=== PATIENT | female | born 1985 | race Caucasian/White ===

== ENCOUNTER 2021-11-14 12:42 | Emergency (ER) | payer OTHER, SELFPAY ==
--- NOTE | ~2021-11-14 | US_ITS ---
EXAMINATION: US OBSTETRICAL ULTRASOUND CLINICAL INFORMATION: Positive COMPARISON: None. TECHNIQUE: Transabdominal endovaginal pelvic ultrasound FINDINGS: There is a single intrauterine gestational sac with visible yolk sac, embryo/fetus, and cardiac activity. There is no significant subchorionic hemorrhage or hematoma. HR: 109 beats per minute. CRL (crown rump length): 0.39 cm (6 weeks 1 day +/- 4 days). RAF (estimated date of delivery): 06/16/2022 +/- 4 days. MATERNAL ADNEXA: The right maternal ovary measures 8 mL in volume and the left maternal ovary measures 6 mL in volume. There is no significant maternal adnexal mass. No maternal pelvic ascites. US/US OB <= 14 weeks fetus IMPRESSION: 1. Single intrauterine gestation with ultrasound gestational age of 6 weeks 1 day +/- 4 days. 2. Estimated date of delivery is 06/16/2022 +/- 4 days. 3. No maternal adnexal mass or pelvic ascites.
[2021-11-14 12:57] VITALS: BP 141/82; PULSE 83; RESP 18; TEMP 36.6; O2SAT 98; BMI 33.6
--- OUTSIDE RECORDS SUMMARY | 2021-11-14 14:19 | XMS_ITS | Continuity of Care Document ---
:1985 Author Organization [facility] Adult [facility] Address [address] [place] [address]- Care Team Providers Name Role Phone Colton Mccarthy MD Primary Care Physician [place] [facility] [place]s): 06/18/20 - 07/18/20 [facility] [address] [place], [place] [address] Allergies, Adverse Reactions, Alerts Substance Reaction Severity Status NKA Active Immunizations Given and Recorded Vaccine Date Status Refusal Reason influenza virus vaccine, inactivated 11/20/19 Given tetanus/diphtheria/pertussis, acel(Tdap)1 02/14/10 Given 1Admin Note: VIS given Medications metFORMIN 500 mg oral tablet 1 tablet = 500 mg, By Mouth, 2 times a day, with meals, # 180 tablet, 1 Refills, Maintenance, 11/20/19 11:00:00 EDT, Tablet, [id number], 170, cm, 11/20/19 10:47:00 EDT, Height, 109, kg, 08/06/18 5:20:00 EDT, Dry Weight Start Date: 11/20/19 Stop Date: 05/18/20 Status: OrderedPrenatal Multivitamins with Folic Acid 1 mg oral tablet 1 tablet, By Mouth, Daily, # 90 tablet, 4 Refills, Maintenance, 11/20/19 11:06:00 EDT, Tablet, [id number], 1 tablet By Mouth Daily, 170, cm, 11/20/19 10:47:00 EDT, Height, 109, kg, 08/06/18 5:20:00 EDT, Dry Weight Start Date: 11/20/19 Status: Ordered Problem List Condition Effective Dates Status Health Status Informant Menstrual irregularity(Confirmed) Active PCOS (polycystic ovarian Active syndrome)(Confirmed) Social History Social History Type Response Tobacco Use: 4 or less cigarettes(le ss than 1/4 pack)/day in last 30 days. Sex
--- OUTSIDE RECORDS SUMMARY | 2021-11-14 14:19 | XMS_ITS | Continuity of Care Document ---
:1985 Author Organization [facility] p Address [address] [place] [address], [address] [place] [address]- Care Team Providers Name Role Phone Trinh Hernandez MD Primary Care Physician [place] [facility] [place] 07[place]21 [facility] [address], [address] [place] [id number] Attending Physician: Kassy Melchor MD Referring Physician: Trinh Hernandez MD Allergies, Adverse Reactions, Alerts No Known Allergies Immunizations Given and Recorded Vaccine Date Status Refusal Reason SARS-CoV-2 (COVID-19) Ad26 vaccine 05/25/20 Given influenza virus vaccine, inactivated 11/20/19 Given tetanus/diphtheria/pertussis, acel(Tdap)1 02/14/10 Given 1Admin Note: VIS given Medications metFORMIN 500 mg oral tablet 1 tablet = 500 mg, By Mouth, 2 times a day, TAKE 1 TABLET BY MOUTH TWICE A DAY NEEDED WITH MEALS,# 60 tablet, 5 Refills, Maintenance, 05/08/21 10:20:00 EDT, Tablet, [id number], Partial fillupon patient request if the prescription is for a... Start Date: 05/08/21 Status: OrderedNicotine 2 mg gum 1 each = 2 mg, Chew, Every hour, PRN as needed for smoking cessation, # 160 each, 1 Refills, Acute 05/08/22 10:21:00 EDT, 05/08/21 10:21:00 EDT, Gum, [id number], Partial fill upon patient request if the prescription is for a schedule II opioid... Start Date: 05/08/21 Stop Date: 05/08/22 Status: Ordered Problem List Condition Effective Dates Status Health Status Informant Menstrual irregularity(Confirmed) Active Obese class I(Confirmed) Active PCOS (polycystic ovarian Active syndrome)(Confirmed) Procedures Procedure Date Related Diagnosis Body Site Status Breast reduction Completed delivery Completed delivery Completed Vital Signs Most recent to oldest [Reference Range]: 1 Height 170 cm (07/10/21 3:35 PM) Weight 99 kg (07/10/21 3:35 PM) Body Mass Index [18.5-24.99] 34.26 *>HHI* (07/10/21 3:35 PM) Blood Pressure [90-138/55-84 mm Hg] 125/80 mm Hg (07/10/21 3:35 PM) Blood pressure sites Arm, right (07/10/21 3:35 PM) Weight Obtained Via Standing scale (07/10/21 3:35 PM) Social History Social History Type Response Tobacco Use: 4 or less cigarettes(le ss than 1/4 pack)/day in last 30 days. Interested in cessatio n: Yes. Sex
--- OUTSIDE RECORDS SUMMARY | 2021-11-14 14:19 | XMS_ITS | Continuity of Care Document ---
:1985 Author Organization [facility] Adult [facility] Address [address] [place] [address]- Care Team Providers Name Role Phone Mary TREVIÑO, Trinh Singh Primary Care Physician Encounter [facility] Date(s): 05/20/21 - 07/03/21 [facility] [address] [place], [place] [address] Attending Physician: Martin Dumont MD Admitting Physician: Martin Dumont MD Allergies, Adverse Reactions, Alerts No Known [...] Start Date: 05/08/21 Stop Date: 05/08/22 Status: Orderednicotine 21 mg/24 hr transdermal film, extended release 1 patch, Topically, Daily, for 30 days, # 30 patch, 1 Refills, Acute 07/07/21 10:21:00 EDT, 05/08/2209:21:00 EDT, Patch, [id number], Partial fill upon patient request if the prescription is for a schedule II opioid drug., 1 patch Topically Da... Start Date: 05/08/21 Stop Date: 07/07/21 Status: Ordered Problem List Condition Effective Dates Status Health Status Informant Menstrual irregularity(Confirmed) Active Obese class I(Confirmed) Active PCOS (polycystic ovarian Active syndrome)(Confirmed) Social History Social History Type Response Tobacco Use: 4 or less cigarettes(le ss than 1/4 pack)/day in last 30 days. Sex
--- OUTSIDE RECORDS SUMMARY | 2021-11-14 14:19 | XMS_ITS | Continuity of Care Document ---
:1985 Author Organization [facility] Adult [facility] Address [address] [place] [address]- Care Team Providers Name Role Phone Not on Staff, PCP Primary Care Physician Unavailable Encounter [facility] Date(s): 02/01/19 - 03/28/19 [facility] [address] [place] [address]- [facility] Attending Physician: Martin Dumont MD Admitting Physician: Martin Dumont MD Allergies, Adverse Reactions, Alerts Substance Reaction Severity Status NKA Active Immunizations Given and Recorded Vaccine Date Status Refusal Reason tetanus/diphtheria/pertussis, acel(Tdap)1 02/14/10 Given 1Admin Note: VIS given Medications metFORMIN 500 mg oral tablet, extended release 1 tablet = 500 mg, By Mouth, 2 times a day, One tablet in morning, and two tablet in evening, # 30 tablet, 3 Refills, Maintenance, 07/25/18 21:42:58 EDT, ER Tablet Start Date: 07/25/18 Status: Orderednystatin topical [id number] u/gm powder 1 application, Topically, 2 times a day, # 30 Gm, 1 Refills, Maintenance, 07/17/18 13:02:57 EDT, Powder, 1 application Topically 2 times a day Start Date: 07/17/18 Status: OrderedRhogam 300 mcg/ml intramuscular solution = 300 mcg, Intramuscular, Once, # 1 Doses, 0 Refills, Maintenance Start Date: 12/04/09 Status: Ordered Problem List Condition Effective Dates Status Health Status Informant Menstrual irregularity(Confirmed) Active PCOS (polycystic ovarian Active syndrome)(Confirmed) Social History Social History Type Response Smoking Status 5-9 cigarettes (between 1/4 to 1/2 pack)/day in last 30 days entered on: 08/06/18 Sex
--- OUTSIDE RECORDS SUMMARY | 2021-11-14 14:19 | XMS_ITS | Continuity of Care Document ---
:1985 Author Organization [facility] p Address [address] [place] [address], [address] [place] [address]- Care Team Providers Name Role Phone Mary TREVIÑO, Trinh Singh Primary Care Physician [place] [facility] [id number] Date(s): 07/10/21 - 08/09/21 [facility] [address] [place] [address], [address] [place] [id number] Attending Physician: Nallely Ibanez Admitting Physician: AdmtrNallely Referring Physician: Admtr, Nallely Allergies, Adverse Reactions, Alerts No Known Allergies [...]
--- OUTSIDE RECORDS SUMMARY | 2021-11-14 14:19 | XMS_ITS | Continuity of Care Document ---
:1985 Author Organization [facility] Adult [facility] Address [address] [place] [address]- Care Team Providers Name Role Phone Mary TREVIÑO, Trinh Singh Primary Care Physician Encounter [facility] Date(s): 05/11/21 - 06/10/21 [facility] [address] [place], [place] [address] Allergies, Adverse Reactions, Alerts No Known Allergies [...]
--- OUTSIDE RECORDS SUMMARY | 2021-11-14 14:19 | XMS_ITS | Continuity of Care Document ---
:[address] [facility] Adult [facility] Address [address] [place] [address]- Care Team Providers Name Role Phone Colton Mccarthy MD Primary Care Physician Encounter [facility] Date(s): 11/20/19 - 12/20/[facility] [address] [place], [place] [address] Attending Physician: Nallely Ibanez Admitting Physician: Nallely Ibanez Referring Physician: AdmtrNallely Allergies, Adverse Reactions, Alerts Substance Reaction Severity [...]
--- OUTSIDE RECORDS SUMMARY | 2021-11-14 14:19 | XMS_ITS | Continuity of Care Document ---
:1985 Author Organization [facility] Adult [facility] Address [address] [place] [address]- Care Team Providers Name Role Phone Not on Staff, PCP Primary Care Physician Unavailable Encounter [facility] Date(s): 02/26/19 - 03/08/19 [facility] [address] [place] [address]- [facility] Attending Physician: Nallely Ibanez Admitting Physician: Nallely [...] Tablet Start Date: 07/25/18 Status: Orderednystatin topical [id number] u/gm powder 1 application, Topically, 2 times [...]
--- OUTSIDE RECORDS SUMMARY | 2021-11-14 14:19 | XMS_ITS | Continuity of Care Document ---
:1985 Author Organization [facility] Adult [facility] Address [address] [place] [address]- Care Team Providers Name Role Phone Colton Mccarthy MD Primary Care Physician Encounter [facility] Date(s): 10/29/19 - 11/28/19 [facility] Adult [facility] [address] [place] [address]- [facility] Allergies, Adverse Reactions, Alerts Substance Reaction Severity [...] Type Response Smoking Status 5-9 cigarettes (between 4 to 1/2 pack)/day in last 30 days entered on: 08/06/18 Sex
--- OUTSIDE RECORDS SUMMARY | 2021-11-14 14:19 | XMS_ITS | Continuity of Care Document ---
:1985 Author Organization [facility] Adult [facility] Address [address] [place] [address]- Care Team Providers Name Role Phone Mary TREVIÑO, Trinh Singh Primary Care Physician Encounter [facility] Date(s): 05/13/21 - 07/08/21 [facility] [address] [place] [address] Attending Physician: Not on Staff, Attending MD Allergies, Adverse Reactions, Alerts No Known [...]
--- OUTSIDE RECORDS SUMMARY | 2021-11-14 14:19 | XMS_ITS | Continuity of Care Document ---
:1985 Author Organization [facility] Adult [facility] Address [address] [place] [address]- Care Team Providers Name Role Phone Mary TREVIÑO, Trinh Singh Primary Care Physician Encounter [facility] Date(s): 06/08/21 - 07/08/21 [facility] [address] [place], [place] [address] Attending Physician: Nallely Ibanez Admitting Physician: Nallely Ibanez Referring Physician: AdmtrNallely Allergies, Adverse Reactions, Alerts No Known Allergies [...]
[2021-11-14 14:25] LABS: Appearance Urine Cloudy; Color Urine Yellow; Glucose Urine UA Negative (Negative); Leukocyte Esterase Urine Negative (Negative); Nitrite Urine Negative (Negative); PH 7.5 (5.0-9.0); Urine Blood Negative (Negative); Urine Ketones Negative (Negative); Urine Protein Negative (Neg-Trace)
[2021-11-14 14:26] LABS: UPreg QC Valid YES; Urine Pregnancy POSITIVE (NEGATIVE)
--- NOTE | 2021-11-14 14:28 | ED_ITS ---
HPI - Abdominal Pain General Chief Complaint: Abdominal Pain Stated Complaint: abd pain Time Seen by Provider: 11/14/21 14:26 Source: patient Mode of arrival: ambulatory Limitations: no limitations History of Present Illness HPI narrative: 36-year-old female had a random positive home test. Patient has been complaining of lower abdominal pain for the past 3 days, no no vaginal bleeding, no vaginal discharge. Patient also declines CP, SOB, dysuria, urine frequency, and fever. Related Data Allergies Allergy/AdvReac Type Severity Reaction Status Date / Time No Known Allergies Allergy Verified 11/14/21 13:00 Review of Systems Review of Systems All other systems are reviewed and are negative Constitutional: Reports as per HPI and Reports no additional constitutional complaints Eyes: Reports as per HPI and Reports no additional eye complaints Reports system reviewed and no additional complaints, except as documented Cardiovascular: Reports as per HPI and Reports no additional cardiovascular complaints Respiratory: Reports as per HPI and Reports no additional respiratory complaints Gastrointestinal: Reports as per HPI and Reports no additional gastrointestinal complaints Genitourinary: Reports no additional female genitourinary complaints Musculoskeletal: Reports no additional musculoskeletal complaints Skin/Breast: Reports system reviewed and no additional complaints, except as docu Psychiatric: Reports no additional psychiatric complaints Endocrine: Reports no additional endocrine complaints Hematologic/Lymphatic: Reports no additional hematologic/lymphatic complaints Allergic/Immunologic: Reports no additional allergic/immunologic complaints Reports system reviewed and no additional complaints, except as documented and Reports Abnormal speech present [facility] Social History Social History Advance Directives: No Advance Directives Information Provided: No Physical Exam ED Vital Signs: Vital Signs - 24 hr 11/14/21 12:57 Temperature 98 F Pulse Rate 83 Respiratory Rate 18 Blood Pressure 141/82 H Pulse Oximetry 98 Oxygen Delivery Method Room Air BMI result Body Mass Index 33.6 Vital signs have been reviewed as appeared to be correct. Blood pressure normal. Heart rate normal. Respiration rate normal. Temperature normal. Oxygen saturation normal. Appearance: Alert. Oriented X3. No acute distress. Head: Normal external exam. Normocephalic. Atraumatic. No Dunbar signs noted. No raccoon eyes noted Eyes: PERRLA. EOMI. Conjunctiva and sclera normal. Eyelids normal. ENT: TM's Normal. Pharynx normal. Uvula midline. Moist mucous membranes. No trismus noted. No drooling noted. No muffled voice noted. Neck: Normal inspection. Neck supple. FROM. No adenopathy. Thyroid Normal. No meningeal signs. No neck mass noted. CVS: Normal heart rate and rhythm. Heart sound normal. No murmurs noted. Pulses normal throughout. Respiratory: No respiratory distress. Painless inspiration. Breath sounds normal. No wheezes/rales/rhonchi noted. Chest nontender. No accessory muscle usage noted or decreased air movement noted. Abdomen: Soft and nontender. Bowel sounds normal in all 4 quadrants. No distention noted. No organomegaly noted. No visible injury noted. Back: No CVA tenderness. Full range of motion noted. Skin: Skin warm and dry. Normal skin color. Normal skin turgor. No rashes/lesions/lacerations noted. Extremities: No lower extremity edema. Extremities exhibit normal range of motion. Extremities nontender. Neuro: Oriented X 3. Cranial nerve exam: II-XII are grossly intact No motor deficit. No sensory deficit. Reflexes normal. Course Course Course Narrative: Positive home test, mild abdominal pain, labs/pelvic ultrasound/Rh type still pending, case signed out to Dr. Lara to check. MDM - Abdominal Pain Lab Data Labs: Lab Results 11/14/21 11/14/21 Range/Units 13:05 13:05 Urine Color Yellow Urine Appearance Cloudy Urine pH 7.5 (5.0-9.0) Ur Specific [place] 1.020 (1.005-1.025) Urine Protein Negative (Neg-Trace) mg/dL Urine Glucose (UA) Negative (Negative) mg/dL Urine Ketones Negative (Negative) mg/dL Urine Blood Negative (Negative) Urine Nitrite Negative (Negative) Ur Leukocyte Esterase Negative (Negative) Urine Test POSITIVE H (NEGATIVE) Discharge Plan Discharge Clinical Impression: Early stage of Patient Disposition: Still a Patient
[2021-11-14 17:27] LABS: Basophils Percent Auto 0.3 % (0-2); Eosinophils Absolute Auto 0.1 X10*3/uL (0.0-0.4); Hematocrit 46.9 % (37.0-47.0); Hemoglobin 15.8 g/dl (12.0-16.0); Imm Gran Abs Auto 0.06 X10*3/uL (0.00-0.03); Imm Gran Pct Auto 0.5 % (0.0-0.4); Lymphocytes Absolute Auto 2.2 X10*3/uL (1.2-4.9); Lymphocytes Percent Auto 17.2 % (20-40); MANUAL DIFF FLAG SCAN; Mean Corpuscular HGB Conc 33.7 g/dl (31.0-35.0); Mean Corpuscular Hemoglobin 28.9 pg (27.0-33.0); Mean Corpuscular Volume 85.9 fL (80.0-98.0); Monocytes Absolute Auto 0.9 X10*3/uL (0.1-1.2); Neutrophils Absolute Auto 9.3 x10*3/uL (2.0-8.3); PLT CLUMP 1; Red Blood Count 5.46 X10*6/uL (4.20-5.50); Red Cell Distribution Width 13.2 % (11.0-16.0); SCAN SMEAR FLAG 1
[2021-11-14 17:46] LABS: Anion Gap 19 (12-20); Blood Urea Nitrogen 7 mg/dL (9-16); Calcium 9.8 mg/dL (8.4-10.2); Carbon Dioxide 19 mmol/L (22-29); Chloride 106 mmol/L (96-108); Creatinine Clr Calc Pharmacy 136.4; Estimated Glomerular Filt Rate > 60; Glucose Random 78 mg/dL (60-115); Mean Platelet Volume 11.2 fL (9.4-12.3); Platelet Count 145 X10*3/uL (160-400); Potassium 3.7 mmol/L (3.3-5.1); Sodium 140 mmol/L (135-145); White Blood Count 12.6 X10*3/uL (4.8-10.8)
[2021-11-14 17:47] LABS: SLIDE REVIEW VERIFIED
[2021-11-14 17:53] LABS: HCG Quantitative 13457 mIU/mL
== END 2021-11-14 18:33 | disposition home or self-care (01) ==
PROVIDERS: Emergency Provider Emergency Medicine
DX: O26.891 Other specified pregnancy related conditions, first trimester (principal); R10.30 Lower abdominal pain, unspecified; O09.511 Supervision of elderly primigravida, first trimester; Z3A.01 Less than 8 weeks gestation of pregnancy
CPT/HCPCS: 36415; 76801; 80048; 81003; 81025; 84702; 85025; 86900; 86901; 99284